=== PATIENT | female | born 1985 | race Caucasian/White ===

== ENCOUNTER 2016-11-18 17:15 | Emergency (ER) | payer OTHER ==
--- NOTE | 2016-11-18 18:29 | EDDOCDS ---
Physician Documentation [facility] Name: Maite Rosario Age: 31 yrs Sex: Female : 1985 Arrival Date: 11/18/2016 Time: 17:15 Bed Triage 2 Private MD: Skip Disposition: 11/18/16 18:16 Discharged to Home/Self Care. Impression: Contact with and (suspected) exposure to potentially hazardous body fluids, Puncture wound with foreign body of right index finger without damage to nail. - Condition is Stable. - Discharge Instructions: Puncture Wound, Body Fluid Exposure Information. - Medication Reconciliation, Local Pharmacy Hours form. - Follow up: Employee Health Office, .; When: Call to arrange an appointment; Reason: Recheck today's complaints, Continuance of care. Follow up: Remigio Crenshaw; When: Call to arrange an appointment; Reason: Recheck today's complaints, Continuance of care. - Problem is new. - Symptoms are unchanged. Historical: - Allergies: no known allergies; - Home Meds: 1. none - PMHx: none; - PSHx: Hysterectomy; exp lap; - Social history: Smoking status: Patient states was never smoker of tobacco. No barriers to communication noted, The patient speaks fluent Kenyan, Speaks appropriately for age. - Family history: Not pertinent. - : The pt / caregiver states he / she is not on anticoagulants. Home medication list is obtained from the patient. - Exposure Risk Screening:: None identified. 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 5 in. (165.10 cm) (R); Pain 0/10; 17:16 Body Mass Index 21.63 (58.97 kg, 165.10 cm) cmb MDM: 18:14 Consult Employee [email or web address] (-F, 7:30a-4p) or Nursing Protein Chemist for source patient mo1 testing ordered. 18:15 HIV EXPOSED(ONLY WITH PEP SET) Ordered. EDMS 18:15 Hepatitis C Antibody Ordered. EDMS 18:17 Consult [employer] (M-F, 7:30a-4p) or Nursing Protein Chemist for source patient ead testing complete. 18:21 HEPATITIS B SURFACE ANTIBODY Ordered. EDMS 18:21 HEPATITIS B SURFACE ANTIGEN Ordered. EDMS 18:25 Financial registration complete. jpb 18:26 [facility] Payment Agreement was scanned into [employer] and attached to record. jpb Signatures: Dispatcher [employer] EDMS Juan M Richardson Michael, PA PA mo1 Michelle Soto,RN RN ead The chart was reviewed and I authenticate all verbal orders and agree with the evaluation and treatment provided.Corrections: (The following items were deleted from the chart) 18:21 18:15 HEPATITIS B SURFACE ANTIBODY+LAB ordered. EDMS EDMS 18:21 18:15 HEPATITIS B SURFACE ANTIGEN+LAB ordered. EDMS EDMS Attachments: 18:26 [facility] Payment Agreement jpb MTDD
--- NOTE | 2016-11-18 18:29 | EDDOCDS ---
Nurse's Notes [facility] Name: Maite Rosario Age: 31 yrs Sex: Female : 1985 Arrival Date: 11/18/2016 Time: 17:15 Bed Triage 2 Private MD: Skip Diagnosis: Contact with and (suspected) exposure to potentially hazardous body fluids;Puncture wound with foreign body of right index finger without damage to nail Presentation: 11/18 17:18 Presenting complaint: Patient states: pt reports being cut by scalpel to right index ead finger during an autopsy yesterday. reports hospital has medical records of the body. Adult Sepsis Screening: The patient does not have new or worsening altered mentation. Patient's respiratory rate is less than 22. Systolic blood pressure is greater than 100. Patient has a qSOFA score of 0- Negative Sepsis Screen. Suicide/Homicide risk assessment- the patient denies having any suicidal and/or homicidal ideations and does not present with any other emotional, behavioral or mental health complaints. Status: Patient is not a financial services representative or dependent. Transition of care: patient was not received from another setting of care. 17:18 Acuity: AIDEN Level 3 ead 17:18 Method Of Arrival: Walkin/Carried/Asstd ead Triage Assessment: 17:20 General: Appears in no apparent distress, comfortable, well nourished, well groomed, ead Behavior is appropriate for age, cooperative, pleasant. Pain: Denies pain. HIV screening NA for this visit Offered previously. Neurological: No deficits noted. Respiratory: Airway is patent Respiratory effort is even, unlabored. Derm: Skin is pink, warm & dry. abrasion to right index finger. 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 none - PMHx: none; - PSHx: Hysterectomy; exp lap; - Social history: Smoking status: Patient states was never smoker of tobacco. No barriers to communication noted, The patient speaks fluent Nepali, Speaks appropriately for age. - Family history: Not pertinent. - : The pt / caregiver states he / she is not on anticoagulants. Home medication list is obtained from the patient. - Exposure Risk Screening:: None identified. Screenin:27 Screening information is obtained from the patient. Fall risk: No risks identified. ead Assistance ADL's: requires no assistance with activities of daily living. Abuse/DV Screen: The patient / caregiver reports he/she is: not in a situation that causes fear, pain or injury. Nutritional screening: No deficits noted. Advance Directives: Currently, there is no health care proxy. There is no Power of Forensic Dna Analyst. home support is adequate. Assessment: 18:27 General: Appears in no apparent distress, comfortable, Behavior is appropriate for age, ead cooperative. Pain: Denies pain. Neurological: No deficits noted. Respiratory: No deficits noted. Derm: Skin is pink, warm & dry. abrasion to right index finger. Vital Signs: 17:16 BP 122 / 70; Pulse 78; Resp 16; Temp 98.8(O); Pulse Ox 100% ; Weight 58.97 kg (R); cmb Height 5 ft. 5 in. (165.10 cm) (R); Pain 0/10; 17:16 Body Mass Index 21.63 (58.97 kg, 165.10 cm) cmb Vitals: 17:16 Log In Time: November 18, 2016 at 17:15. cmb ED Course: 17:16 Patient visited by Carolee Salas. cmb 17:16 [place] is Private Physician. cmb 17:16 Patient moved to Waiting cmb 17:17 Patient moved to Pre RCE cmb 17:20 Triage Initiated ead 17:23 Patient moved to Triage 2 ead 17:57 Vadim Parker PA is PHCP. mo1 17:57 Mary Champagne MD is Attending Physician. mo1 18:09 Patient visited by Vadim Parker PA. mo1 18:16 [facility], . is Referral Physician. mo1 18:16 Remigio Crenshaw is Referral Physician. mo1 18:26 [facility] Payment Agreement was scanned into [employer] and attached to record. jpb 18:27 The patient / caregiver is instructed regarding the plan of care and ED course. ead 18:27 HEPATITIS B SURFACE ANTIGEN Sent. ead 18:27 HEPATITIS B SURFACE ANTIBODY Sent. ead 18:27 HIV EXPOSED(ONLY WITH PEP SET) Sent. ead 18:27 Hepatitis C Antibody Sent. ead 18:27 No IV's were initiated during this patient's visit. No procedures done that require ead assistance. Order Results: There are currently no results for this order. Outcome: 18:16 Discharge ordered by Provider. mo1 18:27 Discharge Assessment: Patient awake and alert. obeys commands, Oriented to person, ead place and time. patient administered narcotics - no. The following High Risk Discharge criteria are identified: None. Discharged to home ambulatory. Condition: unchanged. Discharge instructions given to patient, Instructed on discharge instructions, follow up and referral plans. Demonstrated understanding of instructions, Pt was receptive of discharge instructions/ teaching. No special radiology studies were completed. Property sent home with patient. 18:29 Patient left the ED. ead Signatures: Juan M Richardson [place] cmb O'Hagan, Michael, PA PA mo1 Michelle SotoRN RN ead Corrections: (The following items were deleted from the chart) 17:26 17:18 Presenting complaint: Patient states: pt reports being cut by scalpel to right ead index finger during an autopsy. reports hospital has medical records of the body. ead MTDD
[2016-11-18 19:12] LABS: CONTROL LINE INT CTR LINE PRESENT
[2016-11-20 09:46] LABS: HEPATITIS B SURFACE ANTIBODY POSITIVE (POSITIVE)
--- NOTE | 2016-11-20 19:30 | EDDOCDS ---
Physician Documentation [facility] Name: Maite Rosario Age: 31 yrs Sex: Female : 1985 Arrival Date: 11/18/2016 Time: 17:15 Bed Triage 2 Private MD: Skip Disposition: 11/18/16 18:16 Discharged to Home/Self Care. Impression: Contact with and (suspected) exposure to potentially hazardous body fluids, Puncture wound with foreign body of right index finger without damage to nail. - Condition is Stable. - Discharge Instructions: Puncture Wound, Body Fluid Exposure Information. - Medication Reconciliation, Local Pharmacy Hours form. - Follow up: Employee Health Office, .; When: Call to arrange an appointment; Reason: Recheck today's complaints, Continuance of care. Follow up: Remigio Crenshaw; When: Call to arrange an appointment; Reason: Recheck today's complaints, Continuance of care. - Problem is new. - Symptoms are unchanged. Historical: - Allergies: no known allergies; - Home Meds: 1. none - PMHx: none; - PSHx: Hysterectomy; exp lap; - Social history: Smoking status: Patient states was never smoker of tobacco. No barriers to communication noted, The patient speaks fluent Scottish, Speaks appropriately for age. - Family history: Not pertinent. - : The pt / caregiver states he / she is not on anticoagulants. Home medication list is obtained from the patient. - Exposure Risk Screening:: None identified. 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 5 in. (165.10 cm) (R); Pain 0/10; 17:16 Body Mass Index 21.63 (58.97 kg, 165.10 cm) cmb MDM: 18:14 Consult Employee [employer] (-F, 7:30a-4p) or Nursing Supervisor Hot Dip Tinning for source patient mo1 testing ordered. 18:15 HIV EXPOSED(ONLY WITH PEP SET) Ordered. EDMS 18:15 Hepatitis C Antibody Ordered. EDMS 18:17 Consult [employer] (M-F, 7:30a-4p) or Nursing Supervisor Hot Dip Tinning for source patient ead testing complete. 18:21 HEPATITIS B SURFACE ANTIBODY Ordered. EDMS 18:21 HEPATITIS B SURFACE ANTIGEN Ordered. EDMS 18:25 Financial registration complete. [facility] 18:26 [facility] Payment Agreement was scanned into [employer] and attached to record. [facility] 11/20 08:39 T-Sheet-- Draft Copy was scanned into [employer] and attached to record. gb Signatures: Dispatcher [employer]Host EDMS Mali Sampson, Avila Reg Juan M Dhaliwal jpb Vadim Parker PA PA mo1 Michelle Soto,RN RN ead The chart was reviewed and I authenticate all verbal orders and agree with the evaluation and treatment provided.Corrections: (The following items were deleted from the chart) 11/18 18:21 18:15 HEPATITIS B SURFACE ANTIBODY+LAB ordered. EDMS EDMS 18:21 18:15 HEPATITIS B SURFACE ANTIGEN+LAB ordered. EDMS EDMS Attachments: 18:26 [facility] Payment Agreement [facility] 11/20 08:39 T-Sheet-- Draft Copy gb Chart Complete MTDD
--- NOTE | 2016-11-20 19:30 | EDDOCDS ---
Nurse's Notes [facility] Name: Maite Rosario Age: 31 yrs Sex: Female : 1985 Arrival Date: 11/18/2016 Time: 17:15 Bed Triage 2 Private MD: Skip Diagnosis: Contact with and (suspected) exposure to potentially hazardous body fluids;Puncture wound with foreign body of right index finger without damage to nail Presentation: 11/18 17:18 Presenting complaint: Patient states: pt reports being cut by scalpel to right index ead finger during an autopsy yesterday. reports hospital has medical records of the body. Adult Sepsis Screening: The patient does not have new or worsening altered mentation. Patient's respiratory rate is less than 22. Systolic blood pressure is greater than 100. Patient has a qSOFA score of 0- Negative Sepsis Screen. Suicide/Homicide risk assessment- the patient denies having any suicidal and/or homicidal ideations and does not present with any other emotional, behavioral or mental health complaints. Status: Patient is not a manager services or dependent. Transition of care: patient was not received from another setting of care. 17:18 Acuity: AIDEN Level 3 ead 17:18 Method Of Arrival: Walkin/Carried/Asstd ead Triage Assessment: 17:20 General: Appears in no apparent distress, comfortable, well nourished, well groomed, ead Behavior is appropriate for age, cooperative, pleasant. Pain: Denies pain. HIV screening NA for this visit Offered previously. Neurological: No deficits noted. Respiratory: Airway is patent Respiratory effort is even, unlabored. Derm: Skin is pink, warm & dry. abrasion to right index finger. 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 none - PMHx: none; - PSHx: Hysterectomy; exp lap; - Social history: Smoking status: Patient states was never smoker of tobacco. No barriers to communication noted, The patient speaks fluent Polish, Speaks appropriately for age. - Family history: Not pertinent. - : The pt / caregiver states he / she is not on anticoagulants. Home medication list is obtained from the patient. - Exposure Risk Screening:: None identified. Screenin:27 Screening information is obtained from the patient. Fall risk: No risks identified. ead Assistance ADL's: requires no assistance with activities of daily living. Abuse/DV Screen: The patient / caregiver reports he/she is: not in a situation that causes fear, pain or injury. Nutritional screening: No deficits noted. Advance Directives: Currently, there is no health care proxy. There is no Power of Recreation Leader. home support is adequate. Assessment: 18:27 General: Appears in no apparent distress, comfortable, Behavior is appropriate for age, ead cooperative. Pain: Denies pain. Neurological: No deficits noted. Respiratory: No deficits noted. Derm: Skin is pink, warm & dry. abrasion to right index finger. Vital Signs: 17:16 BP 122 / 70; Pulse 78; Resp 16; Temp 98.8(O); Pulse Ox 100% ; Weight 58.97 kg (R); cmb Height 5 ft. 5 in. (165.10 cm) (R); Pain 0/10; 17:16 Body Mass Index 21.63 (58.97 kg, 165.10 cm) cmb Vitals: 17:16 Log In Time: November 18, 2016 at 17:15. cmb ED Course: 17:16 Patient visited by Carolee Salas. cmb 17:16 [place] is Private Physician. cmb 17:16 Patient moved to Waiting cmb 17:17 Patient moved to Pre RCE cmb 17:20 Triage Initiated ead 17:23 Patient moved to Triage 2 ead 17:57 Vadim Parker PA is PHCP. mo1 17:57 Mary Champagne MD is Attending Physician. mo1 18:09 Patient visited by Vadim Parker PA. mo1 18:16 [facility], . is Referral Physician. mo1 18:16 Remigio Crenshaw is Referral Physician. mo1 18:26 [facility] Payment Agreement was scanned into [employer] and attached to record. jpb 18:27 The patient / caregiver is instructed regarding the plan of care and ED course. ead 18:27 HEPATITIS B SURFACE ANTIGEN Sent. ead 18:27 HEPATITIS B SURFACE ANTIBODY Sent. ead 18:27 HIV EXPOSED(ONLY WITH PEP SET) Sent. ead 18:27 Hepatitis C Antibody Sent. ead 18:27 No IV's were initiated during this patient's visit. No procedures done that require ead assistance. 11/20 08:39 T-Sheet-- Draft Copy was scanned into [employer] and attached to record. gb Order Results: Lab Order: HIV EXPOSED(ONLY WITH PEP SET); SPEC'M 11/18/16 18:25 Test: HIVEXPOSED0; Value: NEGATIVE; Range: NEGATIVE; Status: F Test: HIV EXPOSED PT 1; Value: NEGATIVE; Range: NEGATIVE; Status: F Test Note: ; This test was performed utilizing a immunochromatographic sandwich principle technique. Sensitivity of the assay is 100%. Specificity of the assay is 99.7%. Lab Order: Hepatitis C Antibody; SPEC'M 11/18/16 18:24 Test: HEPATITIS C VIRUS JUAN C INDEX; Value: < 0.0; Range: <0.8; Units: INDEX; Status: F Lab Order: HEPATITIS B SURFACE ANTIBODY; SPEC'M 11/18/16 18:24 Test: HEPATITIS B SURFACE ANTIBODY; Value: POSITIVE; Range: POSITIVE; Status: F Lab Order: HEPATITIS B SURFACE ANTIGEN; SPEC'M 11/18/16 18:24 Test: HEPATITIS B SURFACE ANTIGEN; Value: NEGATIVE; Range: NEGATIVE; Status: F Outcome: 11/18 18:16 Discharge ordered by Provider. mo1 18:27 Discharge Assessment: Patient awake and alert. obeys commands, Oriented to person, ead place and time. patient administered narcotics - no. The following High Risk Discharge criteria are identified: None. Discharged to home ambulatory. Condition: unchanged. Discharge instructions given to patient, Instructed on discharge instructions, follow up and referral plans. Demonstrated understanding of instructions, Pt was receptive of discharge instructions/ teaching. No special radiology studies were completed. Property sent home with patient. 18:29 Patient left the ED. ead Signatures: Mali Sampson, Avila Reg Juan M Dhaliwal [place] cmb O'Hagan, Michael, PA PA mo1 Michelle Soto,SEBASTIAN RN ead Corrections: (The following items were deleted from the chart) 17:26 17:18 Presenting complaint: Patient states: pt reports being cut by scalpel to right ead index finger during an autopsy. reports hospital has medical records of the body. ead Chart Complete MTDD
--- NOTE | 2016-11-20 19:30 | EDDOCDS ---
Physician Documentation [facility] Name: Maite Rosario Age: 31 yrs Sex: Female : 1985 Arrival Date: 11/18/2016 Time: 17:15 Bed Triage 2 Private MD: Skip Disposition: 11/18/16 18:16 Discharged to Home/Self Care. Impression: Contact with and (suspected) exposure to potentially hazardous body fluids, Puncture wound with foreign body of right index finger without damage to nail. - Condition is Stable. - Discharge Instructions: Puncture Wound, Body Fluid Exposure Information. - Medication Reconciliation, Local Pharmacy Hours form. - Follow up: Employee Health Office, .; When: Call to arrange an appointment; Reason: Recheck today's complaints, Continuance of care. Follow up: Remigio Crenshaw; When: Call to arrange an appointment; Reason: Recheck today's complaints, Continuance of care. - Problem is new. - Symptoms are unchanged. Historical: - Allergies: no known allergies; - Home Meds: 1. none - PMHx: none; - PSHx: Hysterectomy; exp lap; - Social history: Smoking status: Patient states was never smoker of tobacco. No barriers to communication noted, The patient speaks fluent Prydeinig, Speaks appropriately for age. - Family history: Not pertinent. - : The pt / caregiver states he / she is not on anticoagulants. Home medication list is obtained from the patient. - Exposure Risk Screening:: None identified. 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 5 in. (165.10 cm) (R); Pain 0/10; 17:16 Body Mass Index 21.63 (58.97 kg, 165.10 cm) cmb MDM: 18:14 Consult Employee [employer] (-F, 7:30a-4p) or Nursing Nat Instructor for source patient mo1 testing ordered. 18:15 HIV EXPOSED(ONLY WITH PEP SET) Ordered. EDMS 18:15 Hepatitis C Antibody Ordered. EDMS 18:17 Consult [employer] (M-F, 7:30a-4p) or Nursing Nat Instructor for source patient ead testing complete. 18:21 HEPATITIS B SURFACE ANTIBODY Ordered. EDMS 18:21 HEPATITIS B SURFACE ANTIGEN Ordered. EDMS 18:25 Financial registration complete. [facility] 18:26 [facility] Payment Agreement was scanned into [employer] and attached to record. [facility] 11/20 08:39 T-Sheet-- Draft Copy was scanned into [employer] and attached to record. gb Signatures: Dispatcher [employer]Host EDMS Mali Sampson, Avila Reg Juan M Dhaliwal jpb Vadim Parker PA PA mo1 Michelle Soto,RN RN ead The chart was reviewed and I authenticate all verbal orders and agree with the evaluation and treatment provided.Corrections: (The following items were deleted from the chart) 11/18 18:21 18:15 HEPATITIS B SURFACE ANTIBODY+LAB ordered. EDMS EDMS 18:21 18:15 HEPATITIS B SURFACE ANTIGEN+LAB ordered. EDMS EDMS Attachments: 18:26 [facility] Payment Agreement [facility] 11/20 08:39 T-Sheet-- Draft Copy gb Chart Complete MTDD
--- NOTE | 2016-11-24 09:15 | EDDOCDS ---
Physician Documentation [facility] Name: Maite Rosario Age: 31 yrs Sex: Female : 1985 Arrival Date: 11/18/2016 Time: 17:15 Bed Triage 2 Private MD: Skip Disposition: 11/18/16 18:16 Discharged to Home/Self Care. Impression: Contact with and (suspected) exposure to potentially hazardous body fluids, Puncture wound with foreign body of right index finger without damage to nail. - Condition is Stable. - Discharge Instructions: Puncture Wound, Body Fluid Exposure Information. - Medication Reconciliation, Local Pharmacy Hours form. - Follow up: Employee Health Office, .; When: Call to arrange an appointment; Reason: Recheck today's complaints, Continuance of care. Follow up: Remigio Crenshaw; When: Call to arrange an appointment; Reason: Recheck today's complaints, Continuance of care. - Problem is new. - Symptoms are unchanged. Historical: - Allergies: no known allergies; - Home Meds: 1. none - PMHx: none; - PSHx: Hysterectomy; exp lap; - Social history: Smoking status: Patient states was never smoker of tobacco. No barriers to communication noted, The patient speaks fluent Austrian, Speaks appropriately for age. - Family history: Not pertinent. - : The pt / caregiver states he / she is not on anticoagulants. Home medication list is obtained from the patient. - Exposure Risk Screening:: None identified. 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 5 in. (165.10 cm) (R); Pain 0/10; 17:16 Body Mass Index 21.63 (58.97 kg, 165.10 cm) cmb MDM: 18:14 Consult Employee [employer] (-F, 7:30a-4p) or Nursing Band Instrument Repairer for source patient mo1 testing ordered. 18:15 HIV EXPOSED(ONLY WITH PEP SET) Ordered. EDMS 18:15 Hepatitis C Antibody Ordered. EDMS 18:17 Consult [employer] (M-F, 7:30a-4p) or Nursing Band Instrument Repairer for source patient ead testing complete. 18:21 HEPATITIS B SURFACE ANTIBODY Ordered. EDMS 18:21 HEPATITIS B SURFACE ANTIGEN Ordered. EDMS 18:25 Financial registration complete. [facility] 18:26 [facility] Payment Agreement was scanned into [employer] and attached to record. [facility] 11/20 08:39 T-Sheet-- Draft Copy was scanned into [employer] and attached to record. gb Signatures: Dispatcher [employer] EDMS Mali Sampson, Avila Reg Juan M Dhaliwal jpb Vadim Parker PA PA mo1 Michelle Soto,RN RN ead The chart was reviewed and I authenticate all verbal orders and agree with the evaluation and treatment provided.Corrections: (The following items were deleted from the chart) 11/18 18:21 18:15 HEPATITIS B SURFACE ANTIBODY+LAB ordered. EDMS EDMS 18:21 18:15 HEPATITIS B SURFACE ANTIGEN+LAB ordered. EDMS EDMS Attachments: 18:26 [facility] Payment Agreement [facility] 11/20 08:39 T-Sheet-- Draft Copy gb Chart Complete MTDD
--- NOTE | 2016-11-24 09:15 | EDDOCDS ---
Physician Documentation [facility] Name: Maite Rosario Age: 31 yrs Sex: Female : 1985 Arrival Date: 11/18/2016 Time: 17:15 Bed Triage 2 Private MD: Skip Disposition: 11/18/16 18:16 Discharged to Home/Self Care. Impression: Contact with and (suspected) exposure to potentially hazardous body fluids, Puncture wound with foreign body of right index finger without damage to nail. - Condition is Stable. - Discharge Instructions: Puncture Wound, Body Fluid Exposure Information. - Medication Reconciliation, Local Pharmacy Hours form. - Follow up: Employee Health Office, .; When: Call to arrange an appointment; Reason: Recheck today's complaints, Continuance of care. Follow up: Remigio Crenshaw; When: Call to arrange an appointment; Reason: Recheck today's complaints, Continuance of care. - Problem is new. - Symptoms are unchanged. Historical: - Allergies: no known allergies; - Home Meds: 1. none - PMHx: none; - PSHx: Hysterectomy; exp lap; - Social history: Smoking status: Patient states was never smoker of tobacco. No barriers to communication noted, The patient speaks fluent Honduran, Speaks appropriately for age. - Family history: Not pertinent. - : The pt / caregiver states he / she is not on anticoagulants. Home medication list is obtained from the patient. - Exposure Risk Screening:: None identified. 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 5 in. (165.10 cm) (R); Pain 0/10; 17:16 Body Mass Index 21.63 (58.97 kg, 165.10 cm) cmb MDM: 18:14 Consult Employee [employer] (-F, 7:30a-4p) or Nursing Explosive Operator [employer] for source patient mo1 testing ordered. 18:15 HIV EXPOSED(ONLY WITH PEP SET) Ordered. EDMS 18:15 Hepatitis C Antibody Ordered. EDMS 18:17 Consult [employer] (M-F, 7:30a-4p) or Nursing Explosive Operator [employer] for source patient ead testing complete. 18:21 HEPATITIS B SURFACE ANTIBODY Ordered. EDMS 18:21 HEPATITIS B SURFACE ANTIGEN Ordered. EDMS 18:25 Financial registration complete. [facility] 18:26 [facility] Payment Agreement was scanned into [employer] and attached to record. [facility] 11/20 08:39 T-Sheet-- Draft Copy was scanned into [employer] and attached to record. gb Signatures: Dispatcher [employer] EDMS Mali Sampson, Avila Reg Juan M Dhaliwal jpb Vadim Parker PA PA mo1 Michelle Soto,RN RN ead The chart was reviewed and I authenticate all verbal orders and agree with the evaluation and treatment provided.Corrections: (The following items were deleted from the chart) 11/18 18:21 18:15 HEPATITIS B SURFACE ANTIBODY+LAB ordered. EDMS EDMS 18:21 18:15 HEPATITIS B SURFACE ANTIGEN+LAB ordered. EDMS EDMS Attachments: 18:26 [facility] Payment Agreement [facility] 11/20 08:39 T-Sheet-- Draft Copy gb Chart Complete MTDD
--- NOTE | 2016-11-24 09:15 | EDDOCDS ---
Nurse's Notes [facility] Name: Maite Rosario Age: 31 yrs Sex: Female : 1985 Arrival Date: 11/18/2016 Time: 17:15 Bed Triage 2 Private MD: Skip Diagnosis: Contact with and (suspected) exposure to potentially hazardous body fluids;Puncture wound with foreign body of right index finger without damage to nail Presentation: 11/18 17:18 Presenting complaint: Patient states: pt reports being cut by scalpel to right index ead finger during an autopsy yesterday. reports hospital has medical records of the body. Adult Sepsis Screening: The patient does not have new or worsening altered mentation. Patient's respiratory rate is less than 22. Systolic blood pressure is greater than 100. Patient has a qSOFA score of 0- Negative Sepsis Screen. Suicide/Homicide risk assessment- the patient denies having any suicidal and/or homicidal ideations and does not present with any other emotional, behavioral or mental health complaints. Status: Patient is not a family service center director or dependent. Transition of care: patient was not received from another setting of care. 17:18 Acuity: AIDEN Level 3 ead 17:18 Method Of Arrival: Walkin/Carried/Asstd ead Triage Assessment: 17:20 General: Appears in no apparent distress, comfortable, well nourished, well groomed, ead Behavior is appropriate for age, cooperative, pleasant. Pain: Denies pain. HIV screening NA for this visit Offered previously. Neurological: No deficits noted. Respiratory: Airway is patent Respiratory effort is even, unlabored. Derm: Skin is pink, warm & dry. abrasion to right index finger. 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 none - PMHx: none; - PSHx: Hysterectomy; exp lap; - Social history: Smoking status: Patient states was never smoker of tobacco. No barriers to communication noted, The patient speaks fluent Turkish, Speaks appropriately for age. - Family history: Not pertinent. - : The pt / caregiver states he / she is not on anticoagulants. Home medication list is obtained from the patient. - Exposure Risk Screening:: None identified. Screenin:27 Screening information is obtained from the patient. Fall risk: No risks identified. ead Assistance ADL's: requires no assistance with activities of daily living. Abuse/DV Screen: The patient / caregiver reports he/she is: not in a situation that causes fear, pain or injury. Nutritional screening: No deficits noted. Advance Directives: Currently, there is no health care proxy. There is no Power of Cooperative Education Director. home support is adequate. Assessment: 18:27 General: Appears in no apparent distress, comfortable, Behavior is appropriate for age, ead cooperative. Pain: Denies pain. Neurological: No deficits noted. Respiratory: No deficits noted. Derm: Skin is pink, warm & dry. abrasion to right index finger. Vital Signs: 17:16 BP 122 / 70; Pulse 78; Resp 16; Temp 98.8(O); Pulse Ox 100% ; Weight 58.97 kg (R); cmb Height 5 ft. 5 in. (165.10 cm) (R); Pain 0/10; 17:16 Body Mass Index 21.63 (58.97 kg, 165.10 cm) cmb Vitals: 17:16 Log In Time: November 18, 2016 at 17:15. cmb ED Course: 17:16 Patient visited by Carolee Salas. cmb 17:16 [place] is Private Physician. cmb 17:16 Patient moved to Waiting cmb 17:17 Patient moved to Pre RCE cmb 17:20 Triage Initiated ead 17:23 Patient moved to Triage 2 ead 17:57 Vadim Parker PA is PHCP. mo1 17:57 Mary Champagne MD is Attending Physician. mo1 18:09 Patient visited by Vadim Parker PA. mo1 18:16 [facility], . is Referral Physician. mo1 18:16 Remigio Crenshaw is Referral Physician. mo1 18:26 [facility] Payment Agreement was scanned into [employer] and attached to record. jpb 18:27 The patient / caregiver is instructed regarding the plan of care and ED course. ead 18:27 HEPATITIS B SURFACE ANTIGEN Sent. ead 18:27 HEPATITIS B SURFACE ANTIBODY Sent. ead 18:27 HIV EXPOSED(ONLY WITH PEP SET) Sent. ead 18:27 Hepatitis C Antibody Sent. ead 18:27 No IV's were initiated during this patient's visit. No procedures done that require ead assistance. 11/20 08:39 T-Sheet-- Draft Copy was scanned into [employer] and attached to record. gb Order Results: Lab Order: HIV EXPOSED(ONLY WITH PEP SET); SPEC'M 11/18/16 18:25 Test: HIVEXPOSED0; Value: NEGATIVE; Range: NEGATIVE; Status: F Test: HIV EXPOSED PT 1; Value: NEGATIVE; Range: NEGATIVE; Status: F Test Note: ; This test was performed utilizing a immunochromatographic sandwich principle technique. Sensitivity of the assay is 100%. Specificity of the assay is 99.7%. Lab Order: Hepatitis C Antibody; SPEC'M 11/18/16 18:24 Test: HEPATITIS C VIRUS JUAN C INDEX; Value: < 0.0; Range: <0.8; Units: INDEX; Status: F Lab Order: HEPATITIS B SURFACE ANTIBODY; SPEC'M 11/18/16 18:24 Test: HEPATITIS B SURFACE ANTIBODY; Value: POSITIVE; Range: POSITIVE; Status: F Lab Order: HEPATITIS B SURFACE ANTIGEN; SPEC'M 11/18/16 18:24 Test: HEPATITIS B SURFACE ANTIGEN; Value: NEGATIVE; Range: NEGATIVE; Status: F Outcome: 11/18 18:16 Discharge ordered by Provider. mo1 18:27 Discharge Assessment: Patient awake and alert. obeys commands, Oriented to person, ead place and time. patient administered narcotics - no. The following High Risk Discharge criteria are identified: None. Discharged to home ambulatory. Condition: unchanged. Discharge instructions given to patient, Instructed on discharge instructions, follow up and referral plans. Demonstrated understanding of instructions, Pt was receptive of discharge instructions/ teaching. No special radiology studies were completed. Property sent home with patient. 18:29 Patient left the ED. ead Signatures: Mali Sampson, Avila Reg Juan M Dhaliwal [place] cmb O'Hagan, Michael, PA PA mo1 Michelle Soto,SEBASTIAN RN ead Corrections: (The following items were deleted from the chart) 17:26 17:18 Presenting complaint: Patient states: pt reports being cut by scalpel to right ead index finger during an autopsy. reports hospital has medical records of the body. ead Chart Complete MTDD
== END 2016-11-18 18:29 | disposition home or self-care (01) ==
LOC: M ED 17:15
DX: Z77.21 Contact with and (suspected) exposure to potentially hazardous body fluids (principal); S60.410A Abrasion of right index finger, initial encounter; W26.0XXA Contact with knife, initial encounter; Y92.238 Other place in hospital as the place of occurrence of the external cause; Y93.89 Activity, other specified; Y99.0 Civilian activity done for income or pay

== ENCOUNTER → 2016-12-18 | Outpatient (REF) | payer BC | LOC: M LAB REF 13:20 | PROVIDERS: ATTEND Nurse Practitioner Family | DX: N94.10 Unspecified dyspareunia (principal) ==

== ENCOUNTER → 2017-03-15 | Outpatient (REF) | payer BC | LOC: M LAB REF 12:36 | PROVIDERS: ATTEND Nurse Practitioner Family | DX: Z77.21 Contact with and (suspected) exposure to potentially hazardous body fluids (principal) ==

== ENCOUNTER 2017-03-29 05:50 | Emergency (ER) | payer OTHER, BC ==
[~2017-03-29] VITALS: Ht 162.6 cm; Wt 58.1 kg
[2017-03-29] MEDS ORDERED: ESTR1TAB PO (06:07)
[2017-03-29] MEDS ORDERED: FLUORESCEIN OPHTH 1 MG STRIP OS ONE (06:30)
[2017-03-29 07:04] VITALS: BP 112/60
== END 2017-03-29 07:07 | disposition home or self-care (01) ==
LOC: M ED 06:46
DX: S00.83XA Contusion of other part of head, initial encounter (principal); S16.1XXA Strain of muscle, fascia and tendon at neck level, initial encounter; Y04.8XXA Assault by other bodily force, initial encounter; Y92.238 Other place in hospital as the place of occurrence of the external cause; Y93.89 Activity, other specified; Y99.0 Civilian activity done for income or pay; Z79.899 Other long term (current) drug therapy

== ENCOUNTER → 2018-01-11 | Outpatient (REF) | payer BC ==
[2018-01-11 23:10] LABS: CHLAMYDIA DNA AMPLIFICATION NEGATIVE (NEGATIVE); GC DNA AMPLIFICATION NEGATIVE (NEGATIVE)
== END ==
LOC: M LAB REF 19:26
DX: R10.30 Lower abdominal pain, unspecified (principal)
CPT/HCPCS: 87086

== ENCOUNTER → 2018-01-11 | Outpatient (CLI) | payer BC ==
[2018-01-11 20:28] LABS: BASO # 0.1 10^3/uL (0.0-0.2); BASO % 0.8 % (0.0-1.0); EOS # 0.2 10^3/uL (0.0-0.50); EOS % 1.8 % (0.0-3.0); HEMATOCRIT 40.1 % (36.0-47.0); HEMOGLOBIN 13.4 g/dl (12.0-16.0); IMMATURE GRANULOCYTE % 0.2 % (0-3.0); LYMPH # 2.9 10^3/uL (1.5-4.5); LYMPH % 32.8 % (24.0-44.0); MEAN CORPUSCULAR HEMOGLOBIN 32.1 pg (27.0-33.0); MEAN CORPUSCULAR HGB CONC 33.4 g/dl (32.0-36.5); MEAN CORPUSCULAR VOLUME 95.9 fl (80.0-96.0); MONO # 0.9 10^3/uL (0.0-0.8); MONO % 10.1 % (0.0-5.0); NEUTROPHILS # 4.8 10^3/uL (1.8-7.7); NEUTROPHILS % 54.3 % (36.0-66.0); PLATELET COUNT, AUTOMATED 243 10^3/uL (150-450); RED BLOOD COUNT 4.18 10^6/uL (4.00-5.40); RED CELL DISTRIBUTION WIDTH 12.6 % (11.5-14.5); WHITE BLOOD COUNT 8.9 10^3/uL (4.0-10.0)
[2018-01-11 20:46] LABS: ALBUMIN/GLOBULIN RATIO 1.29 (1.00-1.93); ALKALINE PHOSPHATASE 57 U/L (45-117); ALT/SGPT 22 U/L (12-78); ANION GAP 6 MEQ/L (8-16); AST/SGOT 16 U/L (7-37); BILIRUBIN,TOTAL 1.1 MG/DL (0.2-1.0); BLOOD UREA NITROGEN 13 MG/DL (7-18); CALCIUM LEVEL 8.8 MG/DL (8.5-10.1); CARBON DIOXIDE LEVEL 29 MEQ/L (21-32); CHLORIDE LEVEL 104 MEQ/L (98-107); CREATININE FOR GFR 0.84 MG/DL (0.55-1.30); GLOMERULAR FILTRATION RATE > 60.0 (>60); GLUCOSE, FASTING 83 MG/DL (70-100); SODIUM LEVEL 139 MEQ/L (136-145); TOTAL PROTEIN 7.1 GM/DL (6.4-8.2)
== END ==
LOC: M WUC 17:21
DX: R10.30 Lower abdominal pain, unspecified (principal)
CPT/HCPCS: 80053

== ENCOUNTER → 2018-01-14 | Outpatient (CLI) | payer BC ==
[~2018-01-14] MED LIST: GASTROGRAFIN SOLUTION 30ML (Q9963) As Ordered; ISOVUE-370 76% 100ML VIAL (Q9967) As Ordered
== END ==
LOC: M RAD 14:58
DX: R10.30 Lower abdominal pain, unspecified (principal); Z90.710 Acquired absence of both cervix and uterus
CPT/HCPCS: Q9963

== ENCOUNTER 2018-03-09 10:41 | Day surgery (SDC) | payer BC ==
[2018-03-09 11:01] LABS: HEMATOCRIT 43.8 % (36.0-47.0); HEMOGLOBIN 14.8 g/dl (12.0-15.5); MEAN CORPUSCULAR HEMOGLOBIN 32.2 pg (27.0-33.0); MEAN CORPUSCULAR HGB CONC 33.8 g/dl (32.0-36.5); MEAN CORPUSCULAR VOLUME 95.4 fl (80.0-96.0); PLATELET COUNT, AUTOMATED 220 10^3/uL (150-450); RED BLOOD COUNT 4.59 10^6/uL (4.00-5.40); RED CELL DISTRIBUTION WIDTH 12.1 % (11.5-14.5); WHITE BLOOD COUNT 8.8 10^3/uL (4.0-10.0)
[2018-03-09] MEDS: LR 1,000 ML IV (11:11)
[2018-03-09] MEDS ORDERED: SCOPOLAMINE 1MG TRANSDERMAL PATCH As Ordered (11:24)
[2018-03-09] MEDS ORDERED: fentaNYL 100 MCG/2 ML INJECTION (J3010) As Ordered ×2 (11:32→13:04)
[2018-03-09] MEDS ORDERED: MIDAZOLAM INJ 2 MG/2 ML VIAL (J2250) As Ordered (11:32)
[2018-03-09] MEDS ORDERED: dexameTHASONE 4 MG/ML 1ML VIAL (J1100) As Ordered (11:33)
[2018-03-09] MEDS ORDERED: PROPOFOL 200 MG/20 ML VIAL As Ordered (11:33)
[2018-03-09] MEDS ORDERED: ONDANSETRON 4MG/2ML VIAL (J2405) As Ordered (11:33)
[2018-03-09] MEDS ORDERED: ROCURONIUM BROMIDE 50 MG/5 ML VIAL As Ordered (11:33)
[2018-03-09] MEDS ORDERED: SCOPOLAMINE 1MG TRANSDERMAL PATCH TOP (12:45)
[2018-03-09] MEDS ORDERED: NEOSTIGMINE 10 MG/10 ML VIAL (J2710) As Ordered (13:01)
[2018-03-09] MEDS ORDERED: GLYCOPYRROLATE INJ 0.2 MG/ML 2 ML VIAL As Ordered (13:01)
[2018-03-09] MEDS ORDERED: KETOROLAC 60 MG/2 ML VIAL (J1885) As Ordered (13:25)
[2018-03-09] MEDS: BUPIVACAINE HCL 0.25% 30 ML VIAL As Ordered (13:59)
[2018-03-09] MEDS ORDERED: ONDANSETRON 4MG/2ML VIAL (J2405) IV (14:15)
[2018-03-09] MEDS ORDERED: PERCOCET 5MG/325MG TAB PO ×2 (14:15)
[2018-03-09] MEDS: PERCOCET 5MG/325MG TAB PO (14:15)
[2018-03-09] MEDS ORDERED: LR 1,000 ML IV ×2 (14:15)
[2018-03-09] MEDS ORDERED: HYDROmorphone HCL 1 MG/ML SYRINGE (J1170) IV (14:15)
[2018-03-09] MEDS ORDERED: fentaNYL 100 MCG/2 ML INJECTION (J3010) IV (14:15)
== END 2018-03-09 15:51 | disposition home or self-care (01) ==
LOC: M SDC 10:41
DX: R10.2 Pelvic and perineal pain (principal); N94.12 Deep dyspareunia; N80.9 Endometriosis, unspecified; Z79.899 Other long term (current) drug therapy
CPT/HCPCS: 58662

== ENCOUNTER → 2018-05-24 | Outpatient (REF) | payer BC ==
[2018-05-24 17:51] LABS: TESTOSTERONE 31 NG/DL (14-76)
[2018-05-24 17:51] LABS: ESTRADIOL 87.9 PG/ML
[2018-05-24 17:52] LABS: FOLLICLE STIMULATING HORMONE 8.4 mIU/mL; VITAMIN B12 LEVEL 433 PG/ML (247-911)
== END ==
LOC: M LAB REF 17:26
DX: R53.83 Other fatigue (principal); R68.82 Decreased libido

== ENCOUNTER 2018-12-04 10:16 | Emergency (ER) | payer BC, SELFPAY ==
[~2018-12-04] VITALS: Ht 162.6 cm; Wt 56.8 kg
[~2018-12-04 10:16] MED LIST changes: +ESTR1TAB PO; -GASTROGRAFIN SOLUTION 30ML (Q9963) As Ordered; -ISOVUE-370 76% 100ML VIAL (Q9967) As Ordered; +MULT1TAB10 PO; +OXYC1TAB23 PO; +ZOLP5TAB PO
[2018-12-04] MEDS ORDERED: ACETAMINOPHEN 325 MG TAB PO ONE (10:45)
[2018-12-04] MEDS ORDERED: AUGMENTIN 875 MG TAB PO ONE (11:00)
[2018-12-04] MEDS ORDERED: IBUP80TA PO (11:59)
[2018-12-04] MEDS ORDERED: AUGM875T28 PO (11:59)
[2018-12-04 12:05] VITALS: BP 119/67
[2018-12-04] MEDS ORDERED: NEOSPORIN OINT 0.9 GM PKT (FLOOR STOCK) As Ordered ONE (12:10)
--- NOTE | 2018-12-04 12:44 | REP ---
RIGHT FOREARM: 12/04/2018. Clinical history: Animal bite. Evaluate for fracture of the ulna or other. Findings: Two-view show radius and ulna without fracture or focal lesion. No bone puncture identified. No radiopaque foreign body about the soft tissues of the forearm. No abnormal soft tissue calcifications. That portion of elbow and wrist included as well as proximal metacarpals are intact. Impression: 1. No fracture, bone puncture, radiopaque foreign body, abnormal soft-tissue calcification or other acute finding radiographically about the forearm. Electronically Signed by Tang Peoples MD 12/04/2018 02:31 P
--- NOTE | 2018-12-04 12:49 | REP ---
RIGHT HAND COMPLETE: 12/04/2018. Clinical history: Animal bite, evaluate for metacarpal fracture or other injury. Comparison: Right forearm series today. Findings: Four views of the hand show distal radius and ulna intact. Carpal bones and their joint spaces are preserved. Metacarpals show no fracture or focal lesion. There is no evidence for a bone puncture. MCP, IP joints and the phalanges are normal. I do not see significant abnormal soft tissue swelling about the hand. Impression: 1. Negative right hand series. No foreign body, abnormal soft tissue swelling, bone puncture or other acute finding. Electronically Signed by Tang Peoples MD 12/04/2018 04:33 P
== END 2018-12-04 12:19 | disposition home or self-care (01) ==
LOC: M ED 10:16
DX: S41.101A Unspecified open wound of right upper arm, initial encounter (principal); S40.811A Abrasion of right upper arm, initial encounter; W54.0XXA Bitten by dog, initial encounter; Y92.008 Other place in unspecified non-institutional (private) residence as the place of occurrence of the external cause

== ENCOUNTER → 2019-02-21 | Outpatient (CLI) | payer SELFPAY ==
[~2019-02-21] MED LIST changes: +AUGM875T28 PO; +IBUP80TA PO
[2019-02-21 12:36] LABS: BASO % 0.5 % (0.0-1.0); EOS # 0.1 10^3/uL (0.0-0.50); HEMATOCRIT 40.7 % (36.0-47.0); HEMOGLOBIN 13.3 g/dl (12.0-15.5); LYMPH # 1.8 10^3/uL (1.5-4.5); LYMPH % 20.7 % (24.0-44.0); MEAN CORPUSCULAR HEMOGLOBIN 32.4 pg (27.0-33.0); MEAN CORPUSCULAR HGB CONC 32.7 g/dl (32.0-36.5); MONO # 0.9 10^3/uL (0.0-0.8); MONO % 9.9 % (0.0-5.0); NEUTROPHILS % 67.7 % (36.0-66.0); PLATELET COUNT, AUTOMATED 226 10^3/uL (150-450); RED BLOOD COUNT 4.11 10^6/uL (4.00-5.40); WHITE BLOOD COUNT 8.8 10^3/uL (4.0-10.0)
[2019-02-21 13:04] LABS: ALBUMIN 3.8 GM/DL (3.2-5.2); ALT/SGPT 17 U/L (12-78); BILIRUBIN,TOTAL 1.5 MG/DL (0.2-1.0); BLOOD UREA NITROGEN 12 MG/DL (7-18); CALCIUM LEVEL 8.9 MG/DL (8.5-10.1); CARBON DIOXIDE LEVEL 26 MEQ/L (21-32); CHLORIDE LEVEL 105 MEQ/L (98-107); CREATININE FOR GFR 0.82 MG/DL (0.55-1.30); GLOMERULAR FILTRATION RATE > 60.0 (>60); GLUCOSE, FASTING 61 MG/DL (70-100); POTASSIUM SERUM 4.3 MEQ/L (3.5-5.1); SODIUM LEVEL 137 MEQ/L (136-145); TOTAL PROTEIN 6.7 GM/DL (6.4-8.2)
--- NOTE | 2019-02-22 02:36 | REP ---
Clinical: Abdominal pain. Technique: Single supine view of the abdomen and pelvis. Findings: Bowel gas pattern is nonspecific although mild fecal stasis cannot be excluded. No organomegaly. No abnormal calcifications. Phleboliths noted in the pelvis. Skeletal structures intact. Impression: Nonspecific abdominal radiograph. Electronically Signed by Ermias Huertas MD 02/22/2019 02:27 A
== END ==
LOC: M WUC 10:39
PROVIDERS: ATTEND Physician Assistant
DX: R10.30 Lower abdominal pain, unspecified (principal)

== ENCOUNTER → 2019-06-29 | Outpatient (REF) | payer OTHER ==
[2019-06-29 15:30] LABS: CHLAMYDIA DNA AMPLIFICATION NEGATIVE (NEGATIVE); GC DNA AMPLIFICATION NEGATIVE (NEGATIVE)
== END ==
LOC: M LAB REF 13:03
PROVIDERS: ATTEND Advanced Practice Midwife
DX: R10.2 Pelvic and perineal pain (principal)

== ENCOUNTER → 2019-06-30 | Outpatient (CLI) | payer OTHER ==
--- NOTE | 2019-06-30 11:54 | REP ---
PELVIC SONOGRAPHY: HISTORY: Pelvic and perineal pain. FINDINGS: Transabdominal and transvaginal scanning are performed. Uterus is surgically absent. The right ovary is surgically absent. The left ovary is normal measuring 3.7 x 2.5 x 2.7 cm. Resistive index by Doppler is normal at 0.38. There is a 2.5 x 1.5 x 1.5 cm cyst in the left ovary consistent with a follicle. Visualized bladder yin are smooth. No other abnormality. IMPRESSION: Normal pelvic sonography status post right oophorectomy and hysterectomy. Electronically Signed by Oumar Verduzco MD 06/30/2019 12:08 P
== END ==
LOC: M RAD 09:45
PROVIDERS: ATTEND Advanced Practice Midwife
DX: R10.2 Pelvic and perineal pain (principal)

== ENCOUNTER → 2019-09-29 | Outpatient (REF) | payer OTHER ==
[2019-09-29 18:25] LABS: INFLUENZA A AMPLIFICATION NEGATIVE (NEGATIVE); INFLUENZA B AMPLIFICATION NEGATIVE (NEGATIVE)
== END ==
LOC: M LAB REF 16:35
PROVIDERS: ATTEND Registered Nurse
DX: J06.9 Acute upper respiratory infection, unspecified (principal); R05 Cough; R50.9 Fever, unspecified

== ENCOUNTER → 2019-11-20 | Outpatient (REF) | payer OTHER ==
[2019-11-20 17:41] LABS: APPEARANCE, URINE CLEAR (CLEAR); BACTERIA, URINE AUTO 1+ (NEGATIVE); BILIRUBIN, URINE AUTO NEGATIVE (NEGATIVE); BLOOD, URINE BLOOD NEGATIVE (NEGATIVE); COLOR, URINE YELLOW (YELLOW); GLUCOSE, URINE (UA) AUTO NEGATIVE (NEGATIVE); KETONE, URINE AUTO NEGATIVE (NEGATIVE); LEUKOCYTE ESTERASE, URINE AUTO 2+ (NEGATIVE); MUCUS, URINE SMALL (NEGATIVE); NITRITE, URINE AUTO NEGATIVE (NEGATIVE); PROTEIN, URINE AUTO NEGATIVE (NEGATIVE); RBC, URINE AUTO 5 /HPF (0-3); SPECIFIC GRAVITY URINE AUTO 1.004 (1.002-1.035); SQUAMOUS EPITHELIAL CELL UR AU 1 /HPF (0-6); UROBILINOGEN, URINE AUTO 0.2 mg/dL (0.0-2.0); WBC, URINE AUTO 3 /HPF (0-3)
== END ==
LOC: M SFHCWAGY 16:59
PROVIDERS: ATTEND Specialist
DX: R30.0 Dysuria (principal)

== ENCOUNTER → 2020-02-22 | Outpatient (REF) | payer OTHER ==
[2020-02-22 13:03] LABS: ESTRADIOL 54.9 PG/ML; FOLLICLE STIMULATING HORMONE 11.4 mIU/mL
== END ==
LOC: M LAB REF 12:15
PROVIDERS: ATTEND Registered Nurse
DX: N95.1 Menopausal and female climacteric states (principal)

== ENCOUNTER → 2020-06-04 | Outpatient (CLI) | payer OTHER ==
[2020-06-04 11:11] VITALS: BP 112/70
--- NOTE | 2020-06-04 15:28 | REP ---
ULTRASOUND GUIDED LEFT AXILLARY BIOPSY The procedure was performed under the general supervision of Dr. Verduzco The patient has a history of a 2.2 x 0.5 x 1.1 cm solid nodule in the left axilla seen on a previous ultrasound dated 04/17/2020. The risks and benefits of the procedure were explained to the patient and informed consent was obtained. The left axillary nodule was localized using ultrasound guidance. The skin was prepped and draped in a sterile fashion. 1% lidocaine was used as a local anesthetic. Using ultrasound guidance a 14-gauge coaxial needle biopsy system was inserted and advanced into the nodule. Six core biopsy samples were obtained. A marker clip was placed at the biopsy site. (HydroMARK shape 4) The patient tolerated the procedure well and there were no immediate complications. After the appropriate amount of monitored convalescence the patient was discharged from the department. Electronically Signed by NIDIA Nguyen 06/04/2020 01:55 P Electronically Signed by Oumar Verduzco MD 06/04/2020 03:18 P
== END ==
LOC: M WHCPRO 07:22
PROVIDERS: ATTEND Surgery
DX: D48.1 Neoplasm of uncertain behavior of connective and other soft tissue (principal)

== ENCOUNTER → 2020-06-25 | Outpatient (CLI) | payer OTHER ==
--- NOTE | 2020-08-09 11:00 | REP ---
WHOLE BODY PET/CT SCAN Delay in reporting results from hospital computer system malfunction from malware/ ransomware. INDICATION: The study is performed for a lump in the left axilla. COMPARISON: There are no comparison studies. The patient reportedly has had a recent ultrasound-guided biopsy of the left axilla. The biopsy results are unknown to this examiner. TECHNIQUE: Whole body scanning is performed from the skull base to the upper thighs. NECK AND SUPRACLAVICULAR AREAS: There are no hypermetabolic foci. There is artifactual uptake in the tonsillar tissues. CHEST: There are no hypermetabolic foci. There is a faintly visible focus of non-hypermetabolic uptake along the superolateral margin of the left breast implant capsule. There are bilateral breast implants. The right implant is unremarkable. No hypermetabolic foci are identified in the breast parenchyma on the right or left.. The breast parenchyma is compressed bilaterally by the breast implants. Maximum standard uptake value in the right breast parenchyma is 2.3 and left breast parenchyma is 2.3. This is non-hypermetabolic. No hypermetabolic foci are identified in the chest. ABDOMEN, PELVIS, AND UPPER THIGHS: There are no hypermetabolic foci. Specifically, there are no hepatic or adrenal foci. There are no retroperitoneal or mesenteric foci. There is nonspecific bowel uptake. There are no skeletal foci. IMPRESSION: There are no hypermetabolic foci. Specifically, there is no hypermetabolic focus in the left axilla. There are bilateral breast implants. There is a small focal zone of noin-hypermetabolic uptake along the superolateral margin of the left breast implant capsule. Otherwise, essentially negative whole body PET/CT scan. The study is performed with 8.09 mCi of F18 FDG. [facility]
== END ==
LOC: M PLARAD 13:00
PROVIDERS: ATTEND Registered Nurse
DX: N63.32 Unspecified lump in axillary tail of the left breast (principal); Z98.82 Breast implant status
CPT/HCPCS: 78815; A9552

== ENCOUNTER → 2021-01-10 | Outpatient (REF) | LOC: M LABSMTC 11:30 | PROVIDERS: ATTEND Pediatrics | DX: Z11.52 Encounter for screening for COVID-19 (principal) ==

== ENCOUNTER → 2021-01-16 | Outpatient (REF) | payer OTHER | LOC: M LAB REF 12:26 | PROVIDERS: ATTEND Physician Assistant Medical | DX: N39.0 Urinary tract infection, site not specified (principal) ==

== ENCOUNTER → 2021-02-24 | Outpatient (REF) | LOC: M LABSMTC 13:44 | PROVIDERS: ATTEND Pediatrics | DX: Z20.822 Contact with and (suspected) exposure to COVID-19 (principal) ==

== ENCOUNTER → 2021-03-31 | Outpatient (REF) | LOC: M LABSMTC 12:44 | PROVIDERS: ATTEND Pediatrics | DX: Z20.822 Contact with and (suspected) exposure to COVID-19 (principal) ==

== ENCOUNTER → 2021-04-24 | Outpatient (CLI) | payer OTHER ==
[2021-04-25 05:24] LABS: ESTRADIOL 122.9 PG/ML; FOLLICLE STIMULATING HORMONE 5.8 mIU/mL; LUTEINIZING HORMONE 2.2 mIU/mL; PROGESTERONE 3.01 NG/ML
[2021-04-26 20:07] LABS: TESTOSTERONE FREE (DIRECT) 4.4 pg/mL (0.0-4.2)
== END ==
LOC: M LAB 22:46
PROVIDERS: ATTEND Obstetrics & Gynecology
DX: N95.1 Menopausal and female climacteric states (principal)

== ENCOUNTER → 2021-05-28 | Outpatient (REF) | payer OTHER ==
[2021-05-28 18:10] LABS: HEPATITIS B SURFACE ANTIGEN NEGATIVE (NEGATIVE); HIV 1&2 SCREEN CENTAUR NEGATIVE (NEGATIVE)
[2021-05-30 05:37] LABS: MUMPS VIRUS IgG ANTIBODY <9.0 AU/mL (Immune >10.9); RUBEOLA IgG ANTIBODY <13.5 AU/mL (Immune >16.4)
== END ==
LOC: M LAB REF 16:26
PROVIDERS: ATTEND Physician Assistant Medical
DX: Z02.1 Encounter for pre-employment examination (principal)

== ENCOUNTER → 2021-07-18 | Outpatient (CLI) | payer OTHER, SELFPAY ==
--- NOTE | 2021-07-18 12:54 | REP ---
INDICATION: THYROID NODULE. COMPARISON: None. TECHNIQUE: Real-time sonographic evaluation of left submandibular soft tissues performed at the site of a palpable lump. FINDINGS: Palpable lump corresponds to a normal appearing submandibular gland. A small morphologically normal appearing lymph node is seen adjacent to this measuring 7 x 3 x 4 mm. There are no other significant findings. IMPRESSION: No suspicious findings as discussed above. The palpable lump appears to correspond to a normal submandibular gland. <Electronically signed by Antoni Melton > 07/18/21 [id number]
== END ==
LOC: M RAD 11:58
PROVIDERS: ATTEND Physician Assistant Medical
DX: R22.1 Localized swelling, mass and lump, neck (principal)

== ENCOUNTER → 2021-12-10 | Outpatient (CLI) | payer BC, OTHER | LOC: M WUC 14:23 | PROVIDERS: ATTEND Physician Assistant Medical | DX: R06.02 Shortness of breath (principal) ==

== ENCOUNTER → 2022-06-01 | Outpatient (REF) | payer OTHER ==
[2022-06-03 05:07] LABS: HERPES ZOSTER, VARICELLA IgG 566 index (Immune >165); MUMPS VIRUS IgG ANTIBODY <9.0 AU/mL (Immune >10.9); RUBEOLA IgG ANTIBODY <13.5 AU/mL (Immune >16.4)
== END ==
LOC: M LAB REF 16:15
PROVIDERS: ATTEND Physician Assistant Medical
DX: Z02.1 Encounter for pre-employment examination (principal)

== ENCOUNTER → 2022-09-30 | Outpatient (REF) | payer OTHER | LOC: M LAB REF 11:11 | PROVIDERS: ATTEND Physician Assistant Medical | DX: Z02.1 Encounter for pre-employment examination (principal) ==

== ENCOUNTER → 2023-06-02 | Outpatient (REF) | payer OTHER | LOC: M LAB REF 09:54 | PROVIDERS: ATTEND Physician Assistant Medical | DX: Z02.1 Encounter for pre-employment examination (principal) ==

== ENCOUNTER → 2023-12-09 | Outpatient (CLI) | payer OTHER | LOC: M WUC 08:50 | PROVIDERS: ATTEND Physician Assistant Medical | DX: M25.561 Pain in right knee (principal) ==

== ENCOUNTER → 2024-03-29 | Outpatient (CLI) | payer BC ==
[2024-03-29 18:52] LABS: BASO # 0.1 10^3/uL (0.0-0.2); BASO % 1.1 % (0.0-1.0); EOS # 0.3 10^3/uL (0.0-0.5); EOS % 3.4 % (0.0-3.0); HEMATOCRIT 38.7 % (36.0-47.0); HEMOGLOBIN 12.8 g/dl (12.0-15.5); LYMPH # 2.9 10^3/uL (1.5-5.0); LYMPH % 29.3 % (24.0-44.0); MEAN CORPUSCULAR HEMOGLOBIN 32.8 pg (27.0-33.0); MEAN CORPUSCULAR HGB CONC 33.1 g/dl (32.0-36.5); MEAN CORPUSCULAR VOLUME 99.2 fl (80.0-96.0); MONO # 0.8 10^3/uL (0.0-0.8); MONO % 8.2 % (2.0-8.0); NEUTROPHILS # 5.7 10^3/uL (1.5-8.5); NEUTROPHILS % 57.7 % (36.0-66.0); PLATELET COUNT, AUTOMATED 245 10^3/uL (150-450); WHITE BLOOD COUNT 9.9 10^3/uL (4.0-10.0)
[2024-03-29 19:10] LABS: HEMOGLOBIN A1c 4.5 % (4.0-6.0)
[2024-03-29 19:12] LABS: ALKALINE PHOSPHATASE 51 U/L (46-116); ALT/SGPT 18 U/L (7.0-40); AST/SGOT 19 U/L (<34); BILIRUBIN,TOTAL 0.9 MG/DL (0.3-1.2); BLOOD UREA NITROGEN 20 MG/DL (9-23); CALCIUM LEVEL 8.6 MG/DL (8.5-10.1); CARBON DIOXIDE LEVEL 24 MMOL/L (20-31); CHLORIDE LEVEL 105 MMOL/L (98-107); CREATININE FOR GFR 0.83 MG/DL (0.55-1.30); FREE T4 1.14 NG/DL (0.89-1.76); GLOMERULAR FILTRATION RATE > 60.0 (>58); GLUCOSE, FASTING 96 MG/DL (60-100); HCG, SERUM QUANTITATIVE < 2.6 MIU/ML (<4.2); POTASSIUM SERUM 4.1 MMOL/L (3.5-5.1); SODIUM LEVEL 137 MMOL/L (136-145); THYROID STIMULATING HORMONE 0.459 uIU/ML (0.55-4.78); TOTAL PROTEIN 6.4 G/DL (5.7-8.2)
== END ==
LOC: M PLALAB 14:47
PROVIDERS: ATTEND Nurse Practitioner Family
DX: O92.6 Galactorrhea (principal)

== ENCOUNTER → 2024-04-11 | Outpatient (REF) | payer BC ==
[2024-04-11 18:06] LABS: FOLLICLE STIMULATING HORMONE 5.5 mIU/ML
[2024-04-11 18:07] LABS: LUTEINIZING HORMONE 3.9 mIU/ML; PROLACTIN 7.64 NG/ML
[2024-04-11 18:10] LABS: PROGESTERONE 0.4 NG/ML
== END ==
LOC: M LAB REF 16:23
PROVIDERS: ATTEND Physician Assistant Medical
DX: N64.52 Nipple discharge (principal)

== ENCOUNTER → 2024-05-01 | Outpatient (CLI) | payer BC ==
[~2024-05-01] MED LIST changes: +PROHANCE 279.3MG/ML 15ML VIAL ONE
== END ==
LOC: M PLAIMG 09:17
PROVIDERS: ATTEND Physician Assistant Medical
DX: E23.7 Disorder of pituitary gland, unspecified (principal); N64.52 Nipple discharge
CPT/HCPCS: 70553; A9576

== ENCOUNTER → 2024-10-16 | Outpatient (CLI) | payer BC ==
[~2024-10-16] MED LIST changes: -PROHANCE 279.3MG/ML 15ML VIAL ONE
== END ==
LOC: M WUC 10:49
PROVIDERS: ATTEND Physician Assistant Medical
DX: R05.9 Cough, unspecified (principal); R06.02 Shortness of breath

== ENCOUNTER → 2025-10-18 | Outpatient (RCR) ==
[~2025-10-18] MED LIST changes: -ZOLP5TAB PO; +ZOLP5TAB9 PO
== END ==
LOC: M EMPSSV 10-08 07:01
PROVIDERS: ATTEND Family Medicine
DX: Z20.828 Contact with and (suspected) exposure to other viral communicable diseases (principal)